=== PATIENT | female | born 1970 | race Native Hawaiian/Other Pacific Islander ===

== ENCOUNTER 2017-03-16 16:05 | Emergency (ER) | payer SELFPAY ==
[2017-03-16 16:17] VITALS: BP 168/87
[2017-03-16] MEDS ORDERED: ASPIRIN PO ONE (16:17)
[2017-03-16 16:33] LABS: Hematocrit 43.7 % (30.3-42.9); Hemoglobin 14.6 gm/dl (10.1-14.3); Mean Corpuscular HGB Conc 33 % (30-34); Mean Corpuscular Hemoglobin 30 pg (28-32); Mean Corpuscular Volume 89 fl (79-97); Platelet Count 252 K/mm3 (140-440); Red Blood Count 4.94 M/mm3 (3.65-5.03); Red Cell Distribution Width 13.6 % (13.2-15.2)
[2017-03-16 16:40] LABS: Eosinophils % (Auto) 0.7 % (0.0-4.3); Lymphocytes % (Auto) 34.5 % (13.4-35.0); Monocytes % (Auto) 4.7 % (0.0-7.3)
[2017-03-16 16:41] LABS: Eosinophils # (Auto) 0.1 K/mm3 (0.0-0.4); Lymphocytes # (Auto) 2.5 K/mm3 (1.2-5.4); Monocytes # (Auto) 0.3 K/mm3 (0.0-0.8)
[2017-03-16 16:51] LABS: BUN/Creatinine Ratio 20; Blood Urea Nitrogen 10 mg/dL (7-17); Hemolysis Index 7
== END 2017-03-16 22:58 | disposition left against medical advice (07) ==
LOC: ED 16:05
DX: R07.9 Chest pain, unspecified (principal); Z53.21 Procedure and treatment not carried out due to patient leaving prior to being seen by health care provider
CPT/HCPCS: 36415; 80048; 84484; 85025; 85379; 93005; 93010